=== PATIENT | female | born 1985 | race African-American/Black ===

== ENCOUNTER 2023-09-15 09:43 | Emergency (ER) | payer OTHER, SELFPAY ==
[2023-09-15] VITALS (8 sets, daily range): BP systolic 160–228; BP diastolic 89–141; PULSE 81–88; RESP 18; TEMP 36.3; O2SAT 97–99; BMI 51.3
--- NOTE | ~2023-09-15 | CT_ITS ---
EXAMINATION: CT ABDOMEN AND PELVIS WITH CONTRAST CLINICAL INFORMATION: Right lower quadrant pain. COMPARISON: None available. TECHNIQUE: Multidetector volumetric images were obtained from the superior aspect of the liver through the pubic symphysis following administration 85 mL of Omnipaque 350 intravenous contrast. Sagittal and coronal reformatted images were obtained on the technologist's workstation. Oral contrast: No This CT examination was performed using dose optimization techniques as appropriate, variously including the following: *Automated exposure control *Adjustment of mA and/or kV according to patient size (this includes techniques or standardized protocols for targeted exams where dose is matched to indication/reason for exam; i.e. extremities or head) *Use of iterative reconstruction technique DLP: 932 mGy-cm FINDINGS: LUNG BASES: The visualized lung bases are unremarkable. LIVER, GALLBLADDER, AND BILIARY TREE: The liver is normal in size and contour. No suspicious hepatic lesion or biliary ductal dilatation is present. The gallbladder is not visualized. PANCREAS: Unremarkable. SPLEEN: Unremarkable. ADRENAL GLANDS: Unremarkable. KIDNEYS AND URETERS: The kidneys are normal in size, shape, and attenuation. No hydronephrosis or perinephric stranding. BLADDER: Underdistended. GASTROINTESTINAL TRACT: Small hiatal hernia. Small and large bowel loops are of normal caliber. No small bowel obstruction. Appendix is within normal limits. ABDOMINAL WALL: No significant hernia is appreciated. LYMPH NODES: No bulky abdominal or pelvic lymphadenopathy. VASCULAR: Normal caliber abdominal aorta. PELVIC VISCERA: Uterus is surgically absent. OSSEOUS STRUCTURES: No destructive bone lesions. CT/CT abdomen pelvis w IV con IMPRESSION: No acute abnormality in the abdomen or pelvis. Fleischner guidelines were followed.
--- NOTE | 2023-09-15 10:29 | PC.NURSE ---
Patient reports sudden onset abdominal pain that started around 3am this morning. Reports that she has felt this same pain a few years ago before she had her gall bladder removed. Reports nausea and vomiting. Denies sob, chest pain or headache.
--- NOTE | 2023-09-15 10:34 | PC.NURSE ---
Patient reports has chronically high BP, did not take amlodipine this morning d/t nausea and vomiting
--- NOTE | 2023-09-15 10:39 | ED_ITS ---
HPI - Abdominal Pain General Chief Complaint: Abdominal Pain Stated Complaint: Abd pain sent by urgent care Time Seen by Provider: 09/15/23 10:25 Source: patient Mode of arrival: ambulatory Limitations: no limitations History of Present Illness HPI narrative: 38-year-old female with pmhx significant for HTN presents to the ED today from urgent care with a complaint of abdominal pain, nausea, and vomiting beginning acutely at 3:00 a.m. this morning. Reports gallbladder pain however states that she had her gallbladder removed years ago. Endorses pain to the epigastrium and RUQ/RLQ that woke her from her sleep. Pain comes and goes without completely resolving. Nothing seems to relieve or exacerbate the pain. Admits to one episode of vomiting this morning. Last BM this morning. Was seen at urgent care this morning and was advised to come to the ED for further evaluation. Did not receive workup there. No sick contacts. Only other abdominal surgery was a total hysterectomy. Denies fever, chills, dizziness, chest pain, SOB, diarrhea, constipation, flank pain, dysuria, hematuria, or vaginal discharge. Patient has a history of HTN and states that she did not take her amlodipine this morning. Denies headache or vision changes. Related Data Previous Rx's Medication Instructions Recorded hydrochlorothiazide 25 mg tablet 25 mg PO DAILY #30 tabs 09/15/23 ondansetron 4 mg disintegrating 4 mg PO DAILY PRN nausea and 09/15/23 tablet vomiting 5 days #14 tabs Allergies Allergy/AdvReac Type Severity Reaction Status Date / Time No Known Allergies Allergy Verified 09/15/23 10:06 Review of Systems Review of Systems Constitutional: No fever, chills, fatigue, night sweats, weight changes ENT/Mouth: No ear pain, hearing loss, nasal congestion, sinus pain, rhinorrhea, sore throat Eyes: No eye pain, swelling, redness, vision changes, discharge Cardio: No chest pain, palpitations, [place], orthopnea, peripheral edema Pulm: No SOB, cough, sputum, wheezing, dyspnea, hemoptysis GI: +nausea, +vomiting, No hematemesis, +abdominal pain, No diarrhea, constipation, hematochezia, melena : No irregular bleeding, dysuria, frequency, urgency, hesitancy, hematuria, flank pain MSK: No back pain, neck pain, joint pain, myalgias Skin: No lesions, rashes Neuro: No weakness, numbness, paresthesias, LOC, dizziness, headache All other systems reviewed and are negative. [facility] Past Medical History Attestation statement: The following information was validated with the patient. Source: old records reviewed and nursing notes reviewed Social History Social History Smoked in Last 30 Days: No Use of substances other than those prescribed or required for medical reasons: No Advance Directives: No Physical Exam ED Vital Signs: Vital Signs - 24 hr 09/15/23 10:03 09/15/23 10:23 09/15/23 10:33 Temperature 97.4 F Pulse Rate 88 Respiratory Rate 18 18 18 Blood Pressure 228/141 H 198/111 H Pulse Oximetry 97 97 99 Oxygen Delivery Method Room Air Room Air Room Air 09/15/23 12:00 09/15/23 13:55 09/15/23 14:00 Temperature Pulse Rate 81 84 Respiratory Rate 18 18 18 Blood Pressure 199/121 H 177/93 H 175/98 H Pulse Oximetry 98 97 Oxygen Delivery Method Room Air Room Air 09/15/23 15:32 09/15/23 15:34 Temperature Pulse Rate 83 88 Respiratory Rate 18 Blood Pressure 173/104 H 160/89 H Pulse Oximetry Oxygen Delivery Method BMI result Body Mass Index 51.3 Vital signs initially notable for hypertension. Afebrile. Normotensive. Const Other: + Uncomfortable appearing, lying in bed holding her stomach. General: cooperative, no acute distress, alert and awake Nutritional Appearance: overweight Orientation/consciousness: patient oriented x3 Limitations: no limitations [facility] Head: Yes normal to inspection Ears: hearing grossly normal bilaterally General nose exam: Normal external nose present Mouth: Normal oral and palatal mucosa present and moist mucous membranes Eyes General: appearance normal, both eyes and all related structures Conjunctivae: conjunctivae normal Sclerae: sclerae normal Pupils: Equal, round and reactive pupils present EOM: EOMs intact bilaterally Neck Neck: Yes normal visual inspection, Yes no lymphadenopathy and Yes no meningeal signs Resp Effort & Inspection: normal respiratory effort Auscultation: clear to auscultation bilaterally Cardio Rate: regular rate Rhythm: regular rhythm Peripheral pulses: Peripheral pulses 2+ throughout GI Other: + Abdomen is soft, nondistended, tender to palpation of the epigastric region and right upper/ right lower quadrants, without rebound tenderness or guarding. No hepatomegaly. No splenomegaly. There are normoactive bowel sounds x4. Inspection: Yes normal to inspection General: Yes no CVA tenderness Back/Spine/Pelvis Back: no CVA tenderness Skin General skin exam: no rashes or lesions noted and turgor normal Neuro General: patient oriented x3, gait normal, moves all extremities and no meningeal signs Cranial nerves: Yes CN's II-XII intact bilaterally and Yes Equal, round and reactive pupils present Extrem General: Yes normal to inspection and Yes no clubbing, cyanosis or edema Procedures EJ/Peripheral Line Arm R: Time Out Performed: Yes Skin Cleansed in Sterile Fashion: Yes Size (gauge): 20 IV Secured and Dressing Applied: Yes Patient Tolerated Procedure: well Additional Comments: Ultrasound guided Course Course Course Narrative: 8044-- Nursing staff having difficulty establishing line > Ultrasound guided IV placed in right AC by me. 1242-- Patient's blood pressure noted to be 200/120 after administration of home amlodipine. This may be elevated due to patient's pain, 4 mg morphine ordered. Will also order 0.1 of clonidine and re-evaluate. Awaiting lab results and imaging. 1355-- Blood pressure improved on repeat, now 175/98. CBC without leukocytosis or anemia. Chemistry without acute electrolyte abnormalities requiring intervention. Lipase WNL. ESR/ CRP within normal limits. COVID negative. Awaiting CT results. 1430-- Nurse tells me that patient is now complaining of chest pain. Patient states that after getting injected with the IV contrast she began having chest pain that spans the base of her breasts bilaterally. EKG ordered. 1538-- EKG normal sinus rhythm at a rate of 80 bpm, no acute ischemic changes. CT abdomen/ pelvis unremarkable. No pancreatitis or appendicitis. On re- evaluation the patient states that she is feeling much better after receiving morphine. No longer having chest pain or abdominal pain. She is currently eating Anthony crackers and drinking fritz smita. Informed patient of the unremarkable workup. Her abdominal pain is not an acute surgical emergency. Her symptoms may be consistent with gastroenteritis. Her blood pressure has now normalized to 169/89. I feel comfortable discharging patient home with a course of Zofran for nausea. Additionally I will be starting her on 25 mg of hydrochlorothiazide daily for her high blood pressure in addition to the 10 mg of amlodipine she takes daily. I advised her of this medication change and the need to follow-up with her primary care provider regarding this. Discussed return precautions. All questions answered at this time. Patient agreeable with disposition and stable for discharge. Medical Decision Making Medical Decision Making [facility] Narrative: 38-year-old female with pmhx significant for HTN presents to the ED today from urgent care with a complaint of abdominal pain, nausea, and vomiting beginning acutely at 3:00 a.m. this morning. Patient is nontoxic, in no acute distress, in obvious discomfort lying in bed holding her stomach. Not diaphoretic. No jaundice. Abdomen is soft, ND, tender to palpation of the epigastric region and RUQ/RLQ, no rebound tenderness or guarding. No hepatomegaly. No splenomegaly. Normoactive bowel sounds x4. Clinical concern for pancreatitis, appendicitis, gastritis, viral syndrome, gastroenteritis. Low suspicion for acute abdomen, small-bowel obstruction, ischemic bowel, abdominal dissection or aneurysm. Concern for essential hypertension, hypertensive urgency, hypertensive emergency. Cholecystitis not likely as patient is status post cholystectomy. Plan at this time is basic labs and imaging. Differential Diagnosis Differential Diagnoses: The differential diagnosis associated with the presentation includes As above. Admission/Observation Consideration of admission/observation: Escalation of care including admission/observation considered In this patient with hypertensive urgency, admission was considered. Lab Data [facility] Lab Attestation statement: I reviewed the patient's lab results. As above. 09/15/23 11:38 09/15/23 12:22 Labs: Lab Results 09/15/23 09/15/23 Range/Units 11:38 12:22 WBC 7.0 (4.8-10.8) X10*3/uL RBC 4.35 (4.20-5.50) X10*6/uL Hgb 13.1 (12.0-16.0) g/dl Hct 39.6 (37.0-47.0) % MCV 91.0 (80.0-98.0) fL MCH 30.1 (27.0-33.0) pg MCHC 33.1 (31.0-35.0) g/dl RDW 13.9 (11.0-16.0) % Plt Count 274 (160-400) X10*3/uL MPV 9.9 (9.4-12.3) fL Immature Gran % (Auto) 0.3 (0.0-0.4) % Neut % (Auto) 73.1 H (45-73) % Lymph % (Auto) 16.4 L (20-40) % [place] % (Auto) 9.6 (2-11) % Eos % (Auto) 0.3 (0-4) % Baso % (Auto) 0.3 (0-2) % Lymph # (Auto) 1.2 (1.2-4.9) X10*3/uL [place] # (Auto) 0.7 (0.1-1.2) X10*3/uL Eos # (Auto) 0.0 (0.0-0.4) X10*3/uL Baso # (Auto) 0.0 (0.0-0.2) X10*3/uL Abs Immat Gran (auto) 0.02 (0.00-0.03) X10*3/uL Absolute Neuts (auto) 5.1 (2.0-8.3) x10*3/uL Absolute Nucleated RBC 0.000 (0.0-0.012) X10*3/uL Nucleated RBC % (auto) 0.0 (0.0-0.2) /100WBC ESR 19 (0-20) MM/HR Sodium 138 (135-145) mmol/L Potassium 3.9 (3.3-5.1) mmol/L Chloride 108 (96-108) mmol/L Carbon Dioxide 22 (22-29) mmol/L Anion Gap 12 (12-20) BUN 11 (9-16) mg/dL Creatinine 0.87 (0.5-1.4) mg/dL Estim Creat Clear Calc 103.7 Estimated GFR > 60 Random Glucose 84 (60-115) mg/dL Calcium 8.6 (8.4-10.2) mg/dL Magnesium 1.8 (1.6-2.6) mg/dL Total Bilirubin 0.8 (0.0-1.0) mg/dL AST 23 (5-31) U/L ALT 19 (0-31) U/L Alkaline Phosphatase 107 (39-117) U/L C-Reactive Protein 0.48 (< or = 0.50) mg/dL Total Protein 7.5 (6.5-8.0) g/dL Albumin 3.5 (3.5-5.0) g/dL Lipase 19 (8-78) U/L COVID-19 ([facility]) Negative (Negative) COVID-19 Clin Com See Note Independent Interpretation I performed an independent interpretation of an: CT Scan Interpretation: CT scan without acute intra-abdominal pathology, agree with radiologist's interpretation. Radiology Impression Discussion of test interpretation with radiology: I have reviewed the radiologist's reading. Radiologist Impression: CT abdomen pelvis w IV con IMPRESSION: No acute abnormality in the abdomen or pelvis. Fleischner guidelines were followed. External Record Review External record reviewed: Inpatient record and Outpatient record Prescription Management I considered prescription management with: Pain Medication Chronic Conditions Patient?s care impacted by: Hypertension Medications Administered Discontinued Medications Generic Name Dose Route Start Last Admin Trade Name Freq PRN Reason Stop Dose Admin Amlodipine Besylate 10 mg 09/15/23 10:44 09/15/23 11:48 Amlodipine Besylate 10 Mg Tablet PO 09/15/23 10:45 10 mg ONCE ONE Administration Protocol Clonidine HCl 0.1 mg 09/15/23 12:40 09/15/23 12:53 Clonidine Hcl 0.1 Mg Tablet PO 09/15/23 12:41 0.1 mg ONCE ONE Administration Protocol Sodium Chloride 1,000 mls @ 999 mls/hr 09/15/23 10:45 09/15/23 12:55 Ns IV 09/15/23 11:45 Infused .Q1H1M KAYE Infusion Iohexol 100 ml 09/15/23 13:47 09/15/23 13:48 Iohexol 350 Mg/Ml 100 Ml Infus..Btl IV 09/15/23 13:48 85 ml ONCE ONE Administration Morphine Sulfate 4 mg 09/15/23 12:37 09/15/23 12:42 Morphine Sulfate 4 Mg/Ml Cartridge IVPUSH 09/15/23 12:38 4 mg ONCE ONE Administration Protocol Critical Care Time Critical Care Time Critical Care Time: Yes Total Critical Care Time: 35 Attestation: Critical care time in the amount of 35 minutes has been provided to the patient in terms of direct patient care, frequent reevaluation after IV morphine administration, review and interpretation of medical data and results, and management of potentially life-threatening conditions. This is all outside of any medical procedures. Discharge Plan Discharge Clinical Impression: Gastroenteritis, Hypertension Patient Disposition: Home, Self-Care Instructions: Gastroenteritis (ED) Additional Instructions: Your lab workup today was reassuring.? The CT of your abdomen/ pelvis was unremarkable. Your symptoms are most consistent with a viral stomach bug, also known as gastroenteritis.? The treatment for this is supportive care. Symptoms usually resolve on their own in 48-72 hours.? The recommendation is rest and lots of oral hydration.? Stick to a bland diet like soup and toast while you are not feeling well.? Zofran is an anti-nausea medication. This has been sent to your pharmacy for you to take as needed for nausea.? You can also try over the counter Pepto Bismol or Imodium as needed for upset stomach and diarrhea.? Additionally continue [id number] Tylenol as needed for abdominal pain/discomfort. Follow up with your primary care provider as needed. If you develop new or worsening symptoms call 911 or come back to the ER for further evaluation. Additionally I will be adding another medication for your high blood pressure. Hydrochlorothiazide is a medication that will help lower your blood pressure. Take 25 mg a day. Take this in the morning as it may cause you to urinate more often. Please follow-up with your primary care provider regarding this new medication. Prescriptions: New ondansetron 4 mg tablet,disintegrating 4 mg PO DAILY PRN (Reason: nausea and vomiting) 5 Days Qty: 14 0RF hydrochlorothiazide 25 mg tablet 25 mg PO DAILY Qty: 30 0RF Referrals: Physician,None [Primary Care Provider] - Stand Alone Forms: Work/School Release Interventions: ED Discharge Assessment Last Done: 09/15/23 15:57 Discharge Date/Time: 09/15/23 16:06
[2023-09-15 11:44] LABS: MANUAL DIFF FLAG NO
[2023-09-15 11:47] LABS: Basophils Percent Auto 0.3 % (0-2); Eosinophils Percent Auto 0.3 % (0-4); Hematocrit 39.6 % (37.0-47.0); Hemoglobin 13.1 g/dl (12.0-16.0); Imm Gran Abs Auto 0.02 X10*3/uL (0.00-0.03); Imm Gran Pct Auto 0.3 % (0.0-0.4); Lymphocytes Absolute Auto 1.2 X10*3/uL (1.2-4.9); Lymphocytes Percent Auto 16.4 % (20-40); Mean Corpuscular HGB Conc 33.1 g/dl (31.0-35.0); Mean Corpuscular Hemoglobin 30.1 pg (27.0-33.0); Mean Platelet Volume 9.9 fL (9.4-12.3); Monocytes Absolute Auto 0.7 X10*3/uL (0.1-1.2); Monocytes Percent Auto 9.6 % (2-11); Neutrophils Absolute Auto 5.1 x10*3/uL (2.0-8.3); Neutrophils Percent Auto 73.1 % (45-73); Platelet Count 274 X10*3/uL (160-400); Red Blood Count 4.35 X10*6/uL (4.20-5.50); Red Cell Distribution Width 13.9 % (11.0-16.0)
[2023-09-15] MEDS: amLODIPine Besylate 10 MG TABLET PO (11:48)
[2023-09-15] MEDS: 0.9 % Sodium Chloride 1,000 ML 999 ML IV (11:50)
[2023-09-15 12:24] LABS: Erythrocyte Sedimentation Rate 19 MM/HR (0-20)
--- NOTE | 2023-09-15 12:32 | PC.NURSE ---
Provider notified of elevated BP
[2023-09-15] MEDS: Morphine Sulfate 4 MG/ML CARTRIDGE IVPUSH (12:42)
[2023-09-15 12:43] LABS: COVID-19 Test Negative (Negative); IDNOW Serial# BCCEAD1C
[2023-09-15 12:48] LABS: Alanine Aminotransferase 19 U/L (0-31); Albumin Level 3.5 g/dL (3.5-5.0); Alkaline Phosphatase 107 U/L (39-117); Anion Gap 12 (12-20); Aspartate Amino Transferase 23 U/L (5-31); Bilirubin Total 0.8 mg/dL (0.0-1.0); Blood Urea Nitrogen 11 mg/dL (9-16); C Reactive Protein 0.48 mg/dL (< or = 0.50); Calcium 8.6 mg/dL (8.4-10.2); Carbon Dioxide 22 mmol/L (22-29); Chloride 108 mmol/L (96-108); Creatinine Clr Calc Pharmacy 103.7; Estimated Glomerular Filt Rate > 60; Glucose Random 84 mg/dL (60-115); Lipase 19 U/L (8-78); Magnesium 1.8 mg/dL (1.6-2.6); Potassium 3.9 mmol/L (3.3-5.1); Sodium 138 mmol/L (135-145); Total Protein 7.5 g/dL (6.5-8.0)
[2023-09-15] MEDS: cloNIDine HCL 0.1 MG TABLET PO (12:53)
[2023-09-15] MEDS: iohexoL 350 MG/ML 100 ML INFUS..BTL IV (13:48)
--- NOTE | 2023-09-15 14:26 | ECG_ITS ---
Test Reason : CX PAIN Blood Pressure : / mmHG Vent. Rate : 080 BPM Atrial Rate : 080 BPM P-R Int : 176 ms QRS Dur : 096 ms QT Int : 420 ms P-R-T Axes : 024 024 008 degrees QTc Int : 484 ms Normal sinus rhythm Normal ECG No previous ECGs available Referred By: Leann Decker Electronically Signed By:THOM HENLEY MD
== END 2023-09-15 16:06 | disposition home or self-care (01) ==
PROVIDERS: Physician Assistant Medical; Emergency Provider Student in an Organized Health Care Education/Training Program
DX: K52.9 Noninfective gastroenteritis and colitis, unspecified (principal); I10 Essential (primary) hypertension; R10.31 Right lower quadrant pain; R07.89 Other chest pain; R11.2 Nausea with vomiting, unspecified; Z11.52 Encounter for screening for COVID-19; Z20.822 Contact with and (suspected) exposure to COVID-19; Z79.899 Other long term (current) drug therapy
CPT/HCPCS: 74177; 80053; 83690; 83735; 85025; 85652; 86140; 87635; 93005; 96361; 96374; 99284; 99285; J2270; Q9967